=== PATIENT | female | born 1990 | race Caucasian/White ===

== ENCOUNTER 2017-06-04 08:51 | Emergency (ER) | payer SELFPAY ==
[~2017-06-04] VITALS: Ht 157.5 cm; Wt 102.0 kg
[2017-06-04 08:56] VITALS: BP 150/72; PULSE 100; RESP 17; TEMP 99; O2SAT 98
[2017-06-04] MEDS ORDERED: AMOX875T PO (09:08)
--- NOTE | 2017-06-04 09:09 | PD ---
HPI . sore throat Chief Complaint: Cold / Flu Symptoms Time Seen by Provider: 09:04 Travel History International Travel<30 days: No Contact w/Intl Traveler<30days: No History of Present Illness HPI Patient presents with a chief complaint of a sore throat. Onset was last night approximately 6:30 PM. It was much worse on awakening this morning. It is associated with chills. She has no other cold symptoms. Pain is rated 7/10. Pain is exacerbated by swallowing. There has been no treatment prior to arrival. Patient states that she is prone to strep throat. PFSH Social History Tobacco Use: No Review of Systems Except as stated in HPI: all other systems reviewed are Neg General / Constitutional: Positive: Chills HENT: Positive: Sore Throat Physical Exam Narrative GENERAL: Awake and alert and in no acute distress. SKIN: Warm and dry. HEAD: Normocephalic/atraumatic. EYES: Pupils are equal. Extraocular movements are intact. ENT: Tonsillar enlargement with erythema. No exudate. No peritonsillar edema. Uvula is not edematous and is in the midline. NECK: Normal range of motion. No cervical lymphadenopathy. CARDIOVASCULAR: Regular rate and rhythm. RESPIRATORY: Nonlabored respirations. MUSCULOSKELETAL: Atraumatic. NEUROLOGICAL: Nonfocal. PSYCHIATRIC: Appropriate mood and affect. Data Data Last Documented VS Vital Signs Date Time Temp Pulse Resp B/P (MAP) Pulse Ox O2 Delivery O2 Flow Rate FiO2 06/04/17 08:56 99.0 100 17 150/72 (98) 98 Room Air MDM Medical Decision Making Medical Screen Exam Complete: Yes Emergency Medical Condition: Yes Differential Diagnosis Differential diagnosis of sore throat includes but is not limited to viral illness, strep throat, mononucleosis, retropharyngeal abscess, peritonsillar abscess Narrative Course Patient presents with the acute onset sore throat. She states that she is prone to strep throat. I have offered to do a rapid strep screen but she prefers to just be treated empirically. She reports no known drug allergies. She will be treated with amoxicillin. Diagnosis Primary Impression: Pharyngitis Qualified Codes: J02.9 - Acute pharyngitis, unspecified Patient Instructions: General Instructions, Pharyngitis (DC) Med/Other Pt SpecificInfo: Prescription(s) given Scripts Amoxicillin (Amoxicillin) 875 Mg Tab 875 MG PO BID for Infection for 7 Days, #14 TAB 0 Refills Prov: Tania Xavier MD 06/04/17 Disposition: 01 DISCHARGE HOME Condition: Stable Tania Xavier MD Jun 04, 2017 09:09
== END 2017-06-04 09:22 | disposition home or self-care (01) ==
LOC: PHEFT 08:51
DX: J02.9 Acute pharyngitis, unspecified (principal)
CPT/HCPCS: 99283

== ENCOUNTER 2017-10-28 12:58 | Emergency (ER) | payer SELFPAY ==
[~2017-10-28 12:58] MED LIST: AMOX875T PO
[2017-10-28 13:11] VITALS: BP 131/90; PULSE 118; RESP 20; TEMP 100.1; O2SAT 96
--- NOTE | 2017-10-28 13:41 | PD ---
HPI Chief Complaint: Fever Time Seen by Provider: 13:25 Travel History International Travel<30 days: No Contact w/Intl Traveler<30days: No Traveled to known affect area: No History of Present Illness HPI 27-year-old female presents emergency department complaining of body aches, sore throat, congestion, ear "stuffiness" started yesterday. Patient states that she developed a sore throat but this has since resolved somewhat and feels that she has swollen tonsils. Says that she has felt feverish as well and had a fever of 100.2. She has not taken any Tylenol or Motrin today for her fever or body aches. She denies nausea, vomiting or diarrhea. Denies abdominal pain. Denies chronic medical issues or medication use. PFSH Past Medical History ?: Unknown LMP: 09/27/17 Past Surgical History Other Surgery: Yes (BREAST REDUCTION 11YRS AGO) Social History Alcohol Use: No Tobacco Use: No Substance Use: No Allergies-Medications (Allergen,Severity, Reaction): Coded Allergies: No Known Allergies (Unverified , 10/28/17) Reported Meds & Prescriptions Reported Meds & Active Scripts Active Tamiflu (Oseltamivir Phosphate) 75 Mg Cap 75 Mg PO BID 5 Days Review of Systems Except as stated in HPI: all other systems reviewed are Neg Physical Exam Narrative GENERAL: Well-developed, well-nourished in no apparent distress SKIN: Warm and dry. Pt feels warm HEAD: Atraumatic. Normocephalic. EYES: Pupils equal and round. No scleral icterus. No injection or drainage. ENT: No nasal bleeding or discharge. Mucous membranes pink and moist. THROAT: No pharyngeal injection, exudates, or tonsillar hypertrophy. Airway is patent. NECK: Trachea midline. No JVD. Mild lymphadenopathy bilateral. No meningismus CARDIOVASCULAR: Regular rate and rhythm. RESPIRATORY: No accessory muscle use. Clear to auscultation. Breath sounds equal bilaterally. GASTROINTESTINAL: Abdomen soft, non-tender, nondistended. No CVA tenderness MUSCULOSKELETAL: Extremities without clubbing, cyanosis, or edema. No obvious deformities. NEUROLOGICAL: Awake and alert. No obvious cranial nerve deficits. Motor grossly within normal limits. Five out of 5 muscle strength in the arms and legs. Normal speech. PSYCHIATRIC: Appropriate mood and affect; insight and judgment normal. Data Data Last Documented VS Vital Signs Date Time Temp Pulse Resp B/P (MAP) Pulse Ox O2 Delivery O2 Flow Rate FiO2 10/28/17 13:11 100.1 118 20 131/90 (104) 96 Orders Orders Ed Discharge Order (10/28/17 13:44) MDM Medical Decision Making Medical Screen Exam Complete: Yes Emergency Medical Condition: Yes Differential Diagnosis Influenza, upper respiratory infection, strep pharyngitis Narrative Course 27-year-old female presents emergency department complaining of body aches, sore throat, congestion, ear "stuffiness" started yesterday. Patient states that she developed a sore throat but this has since resolved somewhat and feels that she has swollen tonsils. Says that she has felt feverish as well and had a fever of 100.2. She has not taken any Tylenol or Motrin today for her fever or body aches. She denies nausea, vomiting or diarrhea. Denies abdominal pain. Denies chronic medical issues or medication use. Vital signs demonstrate tachycardia and mild fever. History and physical are suggestive of influenza. Note that there has been an increase incidence of influenza at this time in the general population. She has been around sick contacts as well. She has not taken any medication for her body aches, fevers. I offered to test for influenza versus treatment however, advised that it may be negative although she may have influenza. Patient states she would like treatment and avoid testing for now. Because patient is healthy and she has no other complaints today aside from viral syndrome type of issues, will treat. Patient be discharged with Tamiflu. Advised to use Tylenol or Motrin per package instructions for fevers and body aches. She should return for worsening or persistent symptoms. Diagnosis Primary Impression: Viral syndrome Referrals: Primary Care Physician Departure Forms: Tests/Procedures, Work Release Enter return to work date: November 01, 2017 Additional Instructions: Avoid contact with other to reduce spread of this virus. Use good hand hygiene and wash hands regularly. You may alternate tylenol and motrin for fever, per package instructions. Use cooling techniques such as placing cool rags in the armpits or legs to reduce fever. Take all medications as prescribed. Follow up with your primary physician within 2-3 days. Return to the emergency department for worsening or uncontrolled fever. Scripts Oseltamivir (Tamiflu) 75 Mg Cap 75 MG PO BID for Mgmt Viral Infection for 5 Days, #10 CAP 0 Refills Prov: Tania Xavier MD 10/28/17 Disposition: 01 DISCHARGE HOME Condition: Stable Mary Martinez October 28, 2017 13:41
[2017-10-28] MEDS ORDERED: OSEL75 PO (13:42)
== END 2017-10-28 13:56 | disposition home or self-care (01) ==
LOC: PHEFT 12:58
DX: B34.9 Viral infection, unspecified (principal)
CPT/HCPCS: 99283